=== PATIENT | female | born 1960 | race Caucasian/White ===

== ENCOUNTER 2017-12-02 09:05 | Outpatient (CLI) | payer BC ==
[2017-12-02 09:23] LABS: BASOPHILS % (AUTO) 0.7 %; EOSINOPHILS # (AUTO) 0.1 10^3/uL (0.0-0.7); EOSINOPHILS % (AUTO) 1.4 %; HGB - HEMOGLOBIN 13.5 g/dL (12.0-16.0); LYMPHOCYTES % (AUTO) 40.5 %; MEAN CORPUSCULAR HEMOGLOBIN 27.2 pg (27.0-31.0); MEAN CORPUSCULAR HGB CONC 33.3 g/dL (32.0-36.0); MEAN CORPUSCULAR VOLUME 81.7 fL (81.0-99.0); MEAN PLATELET VOLUME 7.3 fL (7.9-10.8); MONOCYTES # (AUTO) 0.3 10^3/uL (0.0-1.0); MONOCYTES % (AUTO) 6.3 %; NEUTROPHILS # (AUTO) 2.6 10^3/uL (1.5-6.6); NEUTROPHILS % (AUTO) 51.1 %; PLT - PLATELET COUNT 229 10^3/uL (130-450); RED BLOOD COUNT 4.96 10^6/uL (4.20-5.40); RED CELL DISTRIBUTION WIDTH 13.6 % (12.0-15.0)
[2017-12-02 09:52] LABS: ALBUMIN 4.3 g/dL (3.2-5.5); ALBUMIN/GLOBULIN RATIO 1.4 (1.0-2.2); ALKALINE PHOSPHATASE 49 IU/L (42-121); ALT ALANINE AMINOTRANSFERASE 14 IU/L (10-60); AST ASPARTATE AMINOTRANSFERASE 19 IU/L (10-42); BILIRUBIN,TOTAL 0.6 mg/dL (0.2-1.0); BUN - BLOOD UREA NITROGEN 13 mg/dL (6-20); CALCIUM 8.6 mg/dL (8.5-10.3); CARBON DIOXIDE - CO2 22 mmol/L (21-32); CHLORIDE 107 mmol/L (101-111); CHOL/HDL RATIO 3.9 (<4.4); CHOLESTEROL 156 mg/dL; CREATININE 0.7 mg/dL (0.4-1.0); GFR - MDRD 86 (>89); GLUCOSE 95 mg/dL (70-100); HDL CHOLESTEROL 40 mg/dL; LDL CHOLESTEROL,CALCULATED 80 mg/dL; SODIUM 137 mmol/L (135-145); TOTAL PROTEIN 7.4 g/dL (6.7-8.2); VLDL CHOLESTEROL 36 mg/dL
[2017-12-03 14:31] LABS: HEPATITIS C ANTIBODY REACTIVE (NON-REACTIVE)
== END 2017-12-02 09:06 | disposition home or self-care (01) ==
LOC: LAB 09:05
PROVIDERS: ATTEND Internal Medicine
DX: Z79.899 Other long term (current) drug therapy (principal); E03.9 Hypothyroidism, unspecified; R03.0 Elevated blood-pressure reading, without diagnosis of hypertension; K21.9 Gastro-esophageal reflux disease without esophagitis; Z86.79 Personal history of other diseases of the circulatory system
CPT/HCPCS: 36415; 80053; 80061; 84443; 85025; 86803

== ENCOUNTER 2017-12-16 08:30 | Outpatient (CLI) | payer BC | END 2017-12-16 08:31 | disposition home or self-care (01) | LOC: LAB 08:30 | PROVIDERS: ATTEND Internal Medicine | DX: B18.2 Chronic viral hepatitis C (principal) | CPT/HCPCS: 36415; 87522; 87902 ==

== ENCOUNTER 2018-02-15 05:48 | Emergency (ER) | payer BC ==
[2018-02-15] MEDS ORDERED: ONDANSETRON 4 MG/2 ML VIAL IVP STA (06:08)
[2018-02-15] MEDS ORDERED: SODIUM CHLORIDE 0.9% 1,000 ML IV ONE (06:08)
[2018-02-15] MEDS ORDERED: MORPHINE 2 MG/ML CARPUJECT IVP STA (06:08)
--- NOTE | 2018-02-15 06:11 | ED Physician Documentation ---
PD HPI ABD PAIN - Stated complaint Stated Complaint: UPPER ABDOMINAL PAIN - Chief complaint Chief Complaint: Abd Pain - History obtained from History obtained from: Patient - History of Present Illness Timing - onset: Last night Timing - details: Abrupt onset, Still present Quality: Aching, Sharp Location: RUQ Worsened by: Eating, Palpation Associated symptoms: Nausea. No: Fever, Vomiting Similar symptoms before: Has not had sx before Recently seen: Not recently seen - Additional information Additional information: Patient is a 57 year old female with a history of hypothyroidism who is presenting to the emergency department for right upper quadrant pain. Patient states that she has been on a no carb diet which includes a lot of fat. patient states that she had a fatty meal last night around 7pm and developed pain in her right upper quadrant. Patient states that she had nausea and pain throughout the night but wanted to wait until morning to come in. Review of Systems Constitutional: denies: Fever, Chills Eyes: reports: Reviewed and negative Ears: reports: Reviewed and negative Nose: reports: Reviewed and negative Throat: reports: Reviewed and negative Cardiac: denies: Chest pain / pressure Respiratory: denies: Dyspnea, Cough, Wheezing GI: reports: Abdominal Pain, Nausea. denies: Vomiting, Constipation, Diarrhea : denies: Dysuria, Frequency Skin: denies: Rash, Lesions Immunocompromised: denies: Immunocompromised PD PAST MEDICAL HISTORY - Past Medical History Past Medical History: Yes Endocrine/Autoimmune: HyPOthyroidism - Past Surgical History Past Surgical History: Yes - Present Medications Home Medications: Ambulatory Orders Medication Instructions Recorded Confirmed Estrogens,Esterified [Menest] 1 tab PO DAILY 02/15/18 02/15/18 Levothyroxine Sodium 1 tab PO DAILY 02/15/18 02/15/18 medroxyPROGESTERone [Provera] 1 tab PO DAILY 02/15/18 02/15/18 - Allergies Allergies/Adverse Reactions: Allergies Allergy/AdvReac Type Severity Reaction Status Date / Time Penicillins Allergy Rash Verified 02/15/18 05:56 - Social History Does the pt smoke?: No Smoking Status: Never smoker Does the pt drink ETOH?: Yes Does the pt have substance abuse?: No - Immunizations Immunizations are current?: Yes - POLST Patient has POLST: No PD ED PE NORMAL - Vitals Vital signs reviewed: Yes - General General: Alert and oriented X 3 - Neck Neck: Supple, no meningeal sign - Cardiac Cardiac: RRR, No murmur - Respiratory Respiratory: No respiratory distress - Abdomen Abdomen: Soft - Derm Derm: Normal color - Extremities Extremities: No deformity - Neuro Neuro: Alert and oriented X 3, No motor deficit, Normal speech PD ED PE EXPANDED - General General: In Pain - HEENT HEENT: Dry mucous membranes - Abdomen Abdomen: Tender to palpation, RUQ. No: Rebound, Guarding Results - Vitals Vitals: Vital Signs - 24 hr 02/15/18 02/15/18 02/15/18 05:50 06:21 06:39 Temperature 97.9 C H Heart Rate 85 92 85 Respiratory 16 16 16 Rate Blood Pressure 169/92 H 135/72 H 131/80 H O2 Saturation 98 97 95 Oxygen O2 Source Room air - Labs Labs: Laboratory Tests 02/15/18 02/15/18 06:04 06:04 WBC 9.3 RBC 5.27 Hgb 14.1 Hct 42.7 MCV 81.1 MCH 26.8 L MCHC 33.1 RDW 13.1 Plt Count 214 MPV 7.8 L Neut # 7.5 H Lymph # 1.4 L [place] # 0.4 Eos # 0.0 Baso # 0.0 Absolute Nucleated RBC 0.00 Nucleated RBC % 0.0 Sodium 129 L Potassium 3.9 Chloride 99 L Carbon Dioxide 19 L Anion Gap 11.0 BUN 11 Creatinine 0.6 Estimated GFR (MDRD) 102 Glucose 128 H Calcium 8.5 Total Bilirubin 2.2 H Direct Bilirubin 1.1 H AST 274 H ALT 196 H Alkaline Phosphatase 85 Total Protein 7.7 Albumin 4.5 Globulin 3.2 Albumin/Globulin Ratio 1.4 Lipase 16 L PD MEDICAL DECISION MAKING - ED course Complexity details: reviewed old records, reviewed results, re-evaluated patient , considered differential, d/w patient, d/w family ED course: Patient was seen and examined at bedside. IV access was gained and labs were drawn. Patient was treated with a fluid bolus, morphine and zofran. ultrasound was ordered. Patient was signed over to Dr. Parisi pending ultrasound and disposition.
[2018-02-15 06:25] LABS: BASOPHILS % (AUTO) 0.4 %; EOSINOPHILS % (AUTO) 0.1 %; HGB - HEMOGLOBIN 14.1 g/dL (12.0-16.0); LYMPHOCYTES # (AUTO) 1.4 10^3/uL (1.5-3.5); LYMPHOCYTES % (AUTO) 14.6 %; MEAN CORPUSCULAR HEMOGLOBIN 26.8 pg (27.0-31.0); MEAN CORPUSCULAR HGB CONC 33.1 g/dL (32.0-36.0); MEAN CORPUSCULAR VOLUME 81.1 fL (81.0-99.0); MEAN PLATELET VOLUME 7.8 fL (7.9-10.8); MONOCYTES # (AUTO) 0.4 10^3/uL (0.0-1.0); MONOCYTES % (AUTO) 4.5 %; NEUTROPHILS # (AUTO) 7.5 10^3/uL (1.5-6.6); NEUTROPHILS % (AUTO) 80.4 %; PLT - PLATELET COUNT 214 10^3/uL (130-450); RED BLOOD COUNT 5.27 10^6/uL (4.20-5.40); RED CELL DISTRIBUTION WIDTH 13.1 % (12.0-15.0); WHITE BLOOD COUNT 9.3 x10^3/uL (4.8-10.8)
[2018-02-15 06:42] LABS: ALBUMIN 4.5 g/dL (3.2-5.5); ALBUMIN/GLOBULIN RATIO 1.4 (1.0-2.2); BILIRUBIN,DIRECT 1.1 mg/dL (0.1-0.5); BILIRUBIN,TOTAL 2.2 mg/dL (0.2-1.0); CALCIUM 8.5 mg/dL (8.5-10.3); CREATININE 0.6 mg/dL (0.4-1.0); TOTAL PROTEIN 7.7 g/dL (6.7-8.2)
--- NOTE | 2018-02-15 07:53 | ED Physician Documentation ---
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 went to see pt at [phone] female healthy to ER last night with upper abd pain NV is on a low carb high fat diet and pain began several hr after eating steak with butter and spinach with sour cream no fever no hx same per plant operator/shift supervisor RUQ TTP (better now after meds) labs notable for elev bili AST ALT pt denies recent EtOH or APAP Exam VS noted RRR CTAB abd soft and NT now after meds but she indicates R costal margin as site of her pain earlier she has an erythematous rash to her face that she says occurred after retching last night - not related to any meds given in the ER - does not appear c/w cellulitis erisypilis, laurita lynn, sepsis, shingles etc - likely vascular congestion from retching - will continue to observe but do not feel any meds etc will help sono pending PD PAST MEDICAL HISTORY - Past Medical History Past Medical History: Yes Endocrine/Autoimmune: HyPOthyroidism - Past Surgical History Past Surgical History: Yes - Present Medications Home Medications: Ambulatory Orders Medication Instructions Recorded Confirmed Estrogens,Esterified [Menest] 1 tab PO DAILY 02/15/18 02/15/18 Levothyroxine Sodium 1 tab PO DAILY 02/15/18 02/15/18 medroxyPROGESTERone [Provera] 1 tab PO DAILY 02/15/18 02/15/18 - Allergies Allergies/Adverse Reactions: Allergies Allergy/AdvReac Type Severity Reaction Status Date / Time Penicillins Allergy Rash Verified 02/15/18 05:56 - Social History Does the pt smoke?: No Smoking Status: Never smoker Does the pt drink ETOH?: Yes Does the pt have substance abuse?: No - Immunizations Immunizations are current?: Yes - POLST Patient has POLST: No Results - Vitals Vitals: Vital Signs - 24 hr 02/15/18 02/15/18 02/15/18 05:50 06:21 06:39 Temperature 97.9 C H Heart Rate 85 92 85 Respiratory 16 16 16 Rate Blood Pressure 169/92 H 135/72 H 131/80 H O2 Saturation 98 97 95 02/15/18 02/15/18 09:14 10:51 Temperature 36.7 C 36.7 C Heart Rate 85 84 Respiratory 16 16 Rate Blood Pressure 137/80 H 129/87 H O2 Saturation 98 99 Oxygen O2 Source Room air - Labs Labs: Laboratory Tests 02/15/18 02/15/18 06:04 06:04 WBC 9.3 RBC 5.27 Hgb 14.1 Hct 42.7 MCV 81.1 MCH 26.8 L MCHC 33.1 RDW 13.1 Plt Count 214 MPV 7.8 L Neut # 7.5 H Lymph # 1.4 L [place] # 0.4 Eos # 0.0 Baso # 0.0 Absolute Nucleated RBC 0.00 Nucleated RBC % 0.0 Sodium 129 L Potassium 3.9 Chloride 99 L Carbon Dioxide 19 L Anion Gap 11.0 BUN 11 Creatinine 0.6 Estimated GFR (MDRD) 102 Glucose 128 H Calcium 8.5 Total Bilirubin 2.2 H Direct Bilirubin 1.1 H AST 274 H ALT 196 H Alkaline Phosphatase 85 Total Protein 7.7 Albumin 4.5 Globulin 3.2 Albumin/Globulin Ratio 1.4 Lipase 16 L - Rads (name of study) ruq sono Radiology: See rad report (gallstones, pericholecystic fluid, wall thickening, and dilated CBD 9 mm) PD MEDICAL DECISION MAKING - ED course ED course: acute elena with dilated CBD suggesting choledocholithiasis but nl lipase will start antibiotics - cefoxitin s rxn no ERCP capabilities at [facility] so called Prov to transfer and spoke to Dr Charles who accepts pt in transfer also spoke to Prov GI who be consulting Departure - Departure Disposition: 02 Transfer Acute Care Hosp Clinical Impression: Choledocholithiasis with acute cholecystitis Condition: Good Discharge Date/Time: 02/15/18 11:30
--- NOTE | 2018-02-15 08:47 | Ultrasound Preliminary Report ---
Exam: US ABDOMEN LIMITED IMPRESSION: 1. Cholelithiasis with moderate gallbladder wall thickening and trace pericholecystic fluid. Correlat e clinically for evidence of acute cholecystitis. Nuclear medicine hepatobiliary imaging could be per formed for further evaluation if clinically warranted. [facility] SITE ID: [id number]
--- NOTE | 2018-02-15 08:47 | Ultrasound Report ---
EXAM: ABDOMEN ULTRASOUND LIMITED, RUQ EXAM DATE: 02/15/2018 08:11 AM. CLINICAL HISTORY: Ruq pain after eating. COMPARISON: None. TECHNIQUE: Real-time scanning was performed with static images obtained. FINDINGS: Liver: Normal echotexture.No focal lesion. Liver measures 15.5 cm craniocaudally. Main portal vein fl ow: Hepatopetal. Gallbladder: There is moderate gallbladder wall thickening.There are multiple mobile gallstones. Ther e is trace pericholecystic fluid.Sonographic Bolivar sign is absent, per technologist's notes. However , the patient has received pain medication, per technologist's notes. Biliary System: Common bile duct measures 9.6 mm. No intrahepatic ductal dilatation. Pancreas: Visualized portion is unremarkable. Right Kidney: 13.0 cm longitudinally. Normal echotexture.No hydronephrosis.No contour-deforming mass. No calculus. Other: IMPRESSION: 1. Cholelithiasis with moderate gallbladder wall thickening and trace pericholecystic fluid. Correlat e clinically for evidence of acute cholecystitis. Nuclear medicine hepatobiliary imaging could be per formed for further evaluation if clinically warranted. [facility] Referring Provider Line: [phone] SITE ID: [id number]
[2018-02-15] MEDS ORDERED: D5.45NS W/20 MEQ KCL 1,000 ML IV STA (09:10)
[2018-02-15] MEDS ORDERED: cefOXitin 1 GM in SODIUM CHLORIDE 0.9% MINIBAG 100 ML IV STA (09:10)
[2018-02-15 10:52] VITALS: BP 129/87
== END 2018-02-15 11:30 | disposition short-term general hospital (02) ==
LOC: ED 05:48
DX: K80.42 Calculus of bile duct with acute cholecystitis without obstruction (principal); E03.9 Hypothyroidism, unspecified
CPT/HCPCS: 36415; 76705; 80053; 82248; 83690; 85025; 96361; 96365; 96375; 99284

== ENCOUNTER 2018-02-15 11:31 | Outpatient (CLI) | payer BC | END 2018-02-15 11:32 | disposition short-term general hospital (02) | LOC: EMS 11:31 | PROVIDERS: ATTEND Surgery | DX: K80.42 Calculus of bile duct with acute cholecystitis without obstruction (principal) | CPT/HCPCS: A0170; A0425; A0426 ==

== ENCOUNTER 2018-03-09 16:00 | Outpatient (CLI) | payer BC | END 2018-03-09 16:01 | disposition home or self-care (01) | LOC: LAB 16:00 | PROVIDERS: ATTEND Internal Medicine | DX: E03.9 Hypothyroidism, unspecified (principal) | CPT/HCPCS: 36415; 84443 ==

== ENCOUNTER 2018-05-19 10:53 | Day surgery (SDC) | payer BC ==
[2018-05-19] MEDS ORDERED: LACTATED RINGERS 1,000 ML IV ONE ×3 (11:01→13:42)
[2018-05-19] MEDS ORDERED: fentaNYL 250 MCG/5 ML VIAL IVP ONE (12:33)
[2018-05-19] MEDS ORDERED: MIDAZOLAM 2 MG/2 ML VIAL IVP ONE (12:33)
[2018-05-19] MEDS ORDERED: LIDO GARGLE 30 ML BOTTLE TOP ONE (12:35)
[2018-05-19] MEDS ORDERED: LIDO GARGLE 30 ML BOTTLE ONE (12:38)
[2018-05-19 13:53] VITALS: BP 116/68
== END 2018-05-19 10:54 | disposition home or self-care (01) ==
LOC: SDS 10:53
PROVIDERS: ATTEND Surgery
PROC: 0DBN8ZX Excision of Sigmoid Colon, Via Natural or Artificial Opening Endoscopic, Diagnostic (ICD-10-PCS; principal; 2018-05-19 12:00)
PROC: 0DB48ZX Excision of Esophagogastric Junction, Via Natural or Artificial Opening Endoscopic, Diagnostic (ICD-10-PCS; 2018-05-19 12:00)
DX: Z12.11 Encounter for screening for malignant neoplasm of colon (principal); D12.5 Benign neoplasm of sigmoid colon; K44.9 Diaphragmatic hernia without obstruction or gangrene; K22.70 Barrett's esophagus without dysplasia; K21.9 Gastro-esophageal reflux disease without esophagitis
CPT/HCPCS: 43239; 45385; A9270; J3010; J7120

== ENCOUNTER 2019-02-09 07:47 | Outpatient (CLI) | payer BC ==
[2019-02-09 08:03] LABS: BASOPHILS % (AUTO) 0.9 %; EOSINOPHILS # (AUTO) 0.1 10^3/uL (0.0-0.7); LYMPHOCYTES # (AUTO) 1.8 10^3/uL (1.5-3.5); LYMPHOCYTES % (AUTO) 35.6 %; MEAN CORPUSCULAR HEMOGLOBIN 27.6 pg (27.0-31.0); MEAN CORPUSCULAR VOLUME 83.5 fL (81.0-99.0); MONOCYTES # (AUTO) 0.4 10^3/uL (0.0-1.0); NEUTROPHILS # (AUTO) 2.6 10^3/uL (1.5-6.6); NEUTROPHILS % (AUTO) 52.5 %; PLT - PLATELET COUNT 242 10^3/uL (130-450); RED BLOOD COUNT 5.06 10^6/uL (4.20-5.40)
[2019-02-09 10:06] LABS: ALBUMIN 4.2 g/dL (3.2-5.5); ALBUMIN/GLOBULIN RATIO 1.3 (1.0-2.2); ALKALINE PHOSPHATASE 37 IU/L (42-121); ALT ALANINE AMINOTRANSFERASE 20 IU/L (10-60); AST ASPARTATE AMINOTRANSFERASE 16 IU/L (10-42); BILIRUBIN,TOTAL 0.6 mg/dL (0.2-1.0); BUN - BLOOD UREA NITROGEN 17 mg/dL (6-20); CARBON DIOXIDE - CO2 25 mmol/L (21-32); CHLORIDE 106 mmol/L (101-111); CHOL/HDL RATIO 2.7 (<4.4); CHOLESTEROL 159 mg/dL; CREATININE 0.7 mg/dL (0.4-1.0); GFR - MDRD 85 (>89); GLUCOSE 92 mg/dL (70-100); HDL CHOLESTEROL 59 mg/dL; LDL CHOLESTEROL,CALCULATED 86 mg/dL; LDL/HDL RATIO 1.5 (<4.4); MAGNESIUM 2.2 mg/dL (1.7-2.8); SODIUM 140 mmol/L (135-145); TOTAL PROTEIN 7.4 g/dL (6.7-8.2); VLDL CHOLESTEROL 14 mg/dL
[2019-02-09 10:14] LABS: THYROID STIMULATING HORMONE 0.53 uIU/mL (0.34-5.60)
== END 2019-02-09 07:48 | disposition home or self-care (01) ==
LOC: LAB 07:47
PROVIDERS: ATTEND Internal Medicine
DX: E03.9 Hypothyroidism, unspecified (principal); R53.83 Other fatigue; Z13.6 Encounter for screening for cardiovascular disorders; Z79.899 Other long term (current) drug therapy; Z86.010 Personal history of colon polyps
CPT/HCPCS: 36415; 80053; 80061; 82607; 83721; 83735; 84443; 85025

== ENCOUNTER 2019-11-25 17:25 | Outpatient (CLI) | payer BC ==
[2019-11-25 17:56] LABS: CREATININE 0.6 mg/dL (0.4-1.0)
[2019-11-25] MEDS ORDERED: IOVERSOL 320 50 ML VIAL PO ONE (19:20)
[2019-11-25] MEDS ORDERED: IOVERSOL 320 100 ML VIAL IVP ONE (19:20)
--- NOTE | 2019-11-25 20:18 | CT Report ---
Reason: LLQ PAIN Procedure Date: 11/25/2019 Accession Number: [id number] / [id number] Procedure: CT - Abdomen/Pelvis W CPT Code: Final Report FULL RESULT: EXAM: CT ABDOMEN AND PELVIS EXAM DATE: 11/25/2019 07:18 PM. CLINICAL HISTORY: Left lower quadrant pain for 3 days. COMPARISONS: None. TECHNIQUE: Routine helical CT imaging was performed through the abdomen and pelvis. IV contrast: OPTI 320 100ML. Enteric contrast: No. Reconstructions: Coronal and sagittal. In accordance with CT protocol optimization, one or more of the following dose reduction techniques were utilized for this exam: automated exposure control, adjustment of mA and/or KV based on patient size, or use of iterative reconstructive technique. FINDINGS: Lung Bases: Calcified granuloma in the right middle lobe. Liver: Normal. No masses. Gallbladder/Bile Ducts: Surgically absent gallbladder. No intrahepatic or extra hepatic biliary ductal dilatation. Spleen: Multiple scattered small splenic calcifications suggestive of old granulomatous disease. Otherwise unremarkable. Pancreas: Normal. Adrenal Glands: Normal. Kidneys: Normal. No masses or hydronephrosis. Peritoneal Cavity/Bowel: Normal caliber of the bowel without evidence of obstruction. Sigmoid colon diverticulosis. Minimal fat stranding adjacent to a short segment of the proximal sigmoid colon which measures up to 5 cm in length suggestive of mild acute diverticulitis. No evidence of perforation or abscess formation. Appendix: The appendix is well visualized and normal. Pelvic Organs: Normal. The bladder and visualized pelvic organs are within normal limits. Vasculature: No aneurysms or other significant abnormality. Bones: No significant abnormality. Other: None. IMPRESSION: 1. Minimal fat stranding adjacent to a short segment of the proximal sigmoid colon measuring 5 cm in length suggestive of mild acute diverticulitis without evidence of perforation or abscess formation. 2. Sigmoid colon diverticulosis. 3. Multiple scattered small splenic calcifications and calcified granuloma in the right middle lobe suggestive of old granulomatous disease. [facility] The call report notification system was initiated by Dr. Seamus Londono at 08:07 PM on 11/25/2019. The above call report findings were discussed with Dr. Linda by Dr. Seamus Londono at 08:17 PM on 11/25/2019.
== END 2019-11-25 17:26 | disposition home or self-care (01) ==
LOC: LAB 17:25
PROVIDERS: ATTEND Internal Medicine
DX: R10.32 Left lower quadrant pain (principal); R93.3 Abnormal findings on diagnostic imaging of other parts of digestive tract
CPT/HCPCS: 36415; 74177; 82565; Q9967

== ENCOUNTER 2022-01-28 10:27 | Outpatient (CLI) | payer BC ==
--- NOTE | 2022-01-29 11:46 | Mammography Report ---
BILATERAL DIGITAL SCREENING MAMMOGRAM 3D/2D: 01/28/2022 CLINICAL: Baseline exam. Routine screening. No prior exams were available for comparison. The tissue of both breasts is predominantly fatty. No significant masses, calcifications, or other findings are seen in either breast. IMPRESSION: NEGATIVE There is no mammographic evidence of malignancy. A 1 year screening mammogram is recommended. This exam was interpreted at Station ID: [id number]. NOTE: For mammograms, a report in lay terms will be sent to the patient. Approximately 15% of breast malignancies will not be visualized mammographically. In the management of a palpable breast mass, a negative mammogram must not discourage biopsy of a clinically suspicious lesion. Electronically Signed By: Shantal duron/jean pierrerad:01/28/2022 11:56:57 ACR BI-RADS Category 1: Negative 3341F PARENCHYMAL PATTERN: (F) - The breast(s) demonstrate(s) diffuse fatty replacement. BI-RADS CATEGORY: (1) - 1 RECOMMENDATION: (ANNUAL) - Recommend routine annual screening mammography. [id number] 1 year screening LATERALITY: (B)
== END 2022-01-28 10:28 | disposition home or self-care (01) ==
LOC: DI.N 10:27
PROVIDERS: ATTEND Internal Medicine
DX: Z12.31 Encounter for screening mammogram for malignant neoplasm of breast (principal)

== ENCOUNTER 2023-03-24 06:45 | Outpatient (CLI) | payer BC ==
--- NOTE | 2023-03-24 09:56 | Ultrasound Report ---
PROCEDURE: Pelvic w/Transvaginal INDICATIONS: ABN VAG BLEEDING TECHNIQUE: Real-time scanning was performed of the pelvic organs, with image documentation. Additional endovagi nal scanning was necessary due to incomplete visualization of the adnexal and endometrial structures by transabdominal scanning. COMPARISON: None. FINDINGS: Uterus: Uterus is anteverted and normal in size at 7.0 x 3.5 x 4.4 cm. The myometrium is heterogene ous. The endometrium measures 5 mm in combined thickness. Ovaries: Not visualized due to overlying bowel gas. No adnexal mass. Other: No pathologic free abdominal or pelvic fluid. IMPRESSION: Endometrial stripe measures 5 mm. Consider tissue sampling. Reviewed by: Ryan Chavira on 03/24/2023 9:55 AM PDT Approved by: Ryan Chavira on 03/24/2023 9:55 AM PDT Station ID: [id number]
== END 2023-03-24 06:46 | disposition home or self-care (01) ==
LOC: DI 06:45
PROVIDERS: ATTEND Internal Medicine
DX: N93.9 Abnormal uterine and vaginal bleeding, unspecified (principal)

== ENCOUNTER 2024-08-06 12:53 | Outpatient (CLI) | payer BC, MEDICARE ==
--- NOTE | 2024-08-09 08:12 | Mammography Report ---
BILATERAL DIGITAL SCREENING MAMMOGRAM 3D/2D: 08/06/2024 CLINICAL: Routine screening. Comparison is made to exam dated: 01/28/2022 mammogram - [facility]. There are scattered areas of fibroglandular density in both breasts (category b / 25%-50% glandular t issue). No significant masses, calcifications, or other findings are seen in either breast. There has been no significant interval change. IMPRESSION: NEGATIVE There is no mammographic evidence of malignancy. A 1 year screening mammogram is recommended. Based on the Tyrer Cuzick model (a risk assessment model) the patient's lifetime risk is 10.3% and he r 10 year risk is 5.2%. According to the ACR, ACS, and NCCN guidelines, an annual breast MRI exam jose miguel ng with mammogram is recommended if the patient's lifetime risk is 20% or greater. This exam was interpreted at Station ID: [id number]. NOTE: For mammograms, a report in lay terms will be sent to the patient. Approximately 15% of breast malignancies will not be visualized mammographically. In the management of a palpable breast mass, a negative mammogram must not discourage biopsy of a clinically suspicious lesion. Electronically Signed By: Devonte fry/andie:08/06/2024 17:22:12 letter sent: No_Letter ACR BI-RADS Category 1: Negative 3341F PARENCHYMAL PATTERN: (A) - The breast(s) demonstrate(s) scattered fibroglandular densities. BI-RADS CATEGORY: (1) - 1 RECOMMENDATION: (ANNUAL) - Recommend routine annual screening mammography. [id number] 1 year screening LATERALITY: (B)
== END 2024-08-06 12:54 | disposition home or self-care (01) ==
LOC: DI 12:53
PROVIDERS: ATTEND Internal Medicine
DX: Z12.31 Encounter for screening mammogram for malignant neoplasm of breast (principal); R92.323 Mammographic fibroglandular density, bilateral breasts